=== PATIENT | male | born 1980 | race Caucasian/White ===

== ENCOUNTER 2018-08-26 17:35 | Emergency (ER) | payer MEDICAID, SELFPAY ==
[~2018-08-26] VITALS: Ht 177.8 cm; Wt 73.1 kg
[2018-08-26 17:44] VITALS: BP 161/95
[2018-08-26] MEDS ORDERED: ONDANSETRON ODT 4 MG ONE (19:17)
[2018-08-26] MEDS ORDERED: OXYcodone/APAP 5/325MG TABLET ONE (19:17)
[2018-08-26] MEDS ORDERED: OXYcodone/APAP 5/325MG TABLET PO ONE (19:30)
[2018-08-26] MEDS ORDERED: ONDANSETRON ODT 4 MG PO ONE (19:30)
== END 2018-08-26 20:16 | disposition home or self-care (01) ==
LOC: ED 20:10
DX: S82.52XA Displaced fracture of medial malleolus of left tibia, initial encounter for closed fracture (principal); I10 Essential (primary) hypertension; F17.200 Nicotine dependence, unspecified, uncomplicated; W01.0XXA Fall on same level from slipping, tripping and stumbling without subsequent striking against object, initial encounter; Y93.89 Activity, other specified; Y92.098 Other place in other non-institutional residence as the place of occurrence of the external cause; Y99.8 Other external cause status
CPT/HCPCS: 29515; 73590; 73610; 73630; 99283; Q0162